=== PATIENT | female | born 1980 | race Caucasian/White ===

== ENCOUNTER 2016-08-10 14:35 | Observation (INO) | payer MEDICARE, MEDICAID ==
[~2016-08-10] VITALS: Ht 165.1 cm; Wt 63.5 kg
[2016-08-10 15:22] LABS: Basophils # (auto) 0 uL; Basophils % (auto) 0.2 % (0.0-2.0); Eosinophils # (auto) 0.1 uL; Eosinophils % (auto) 0.7 % (0.0-7.0); Hematocrit 39.7 % (36.0-46.0); Hemoglobin 13.6 g/dL (12.2-16.2); Lymphocytes # (auto) 2.3 uL; Lymphocytes % (auto) 19.8 % (10.0-50.0); Mean Corpuscular Hemoglobin 31.8 pg (28.0-32.0); Mean Corpuscular Hgb Conc. 34.3 g/dL (32.0-36.0); Mean Corpuscular Volume 92.8 fL (80.0-100.0); Mean Platelet Volume 8.5 fL (7.4-10.4); Monocytes # (auto) 0.9 uL; Monocytes % (auto) 7.4 % (0.0-12.0); Neutrophils # (auto) 8.3 uL; Neutrophils % (auto) 71.9 % (37.0-80.0); Platelet Count (auto) 288 10^3/uL (140-450); Red Cell Distribution Width 12.3 % (11.6-16.0); White Blood Cell 11.6 10^3/uL (4.4-10.8)
[2016-08-10 15:51] LABS: Albumin 4.3 g/dL (3.4-5.0); Bilirubin, Total 0.3 mg/dL (0.2-1.0); Calcium 9.1 mg/dL (8.5-10.1); Potassium 3.6 mmol/L (3.5-5.1); Total Protein 7.6 g/dL (6.4-8.2)
[2016-08-10 15:51] LABS: Urine Bilirubin Negative (Negative); Urine Blood Negative /uL (Negative); Urine Color Yellow (Yellow); Urine Glucose Normal (Normal); Urine Ketone Negative (Negative); Urine Nitrite Negative (Negative); Urine RBC <1 /hpf (0 - 4); Urine Squamous Epithelial Cell FEW /hpf (<5); Urine Urobilinogen Normal (Negative)
[2016-08-10] MEDS ORDERED: SODIUM CHLORIDE 0.9% 1,000 ML IVB ONE (17:33)
[2016-08-10] MEDS ORDERED: PROMETHAZINE HCL 25 MG/ML 1ML IV PRN (17:45)
[2016-08-10 21:36] VITALS: BP 104/70
== END 2016-08-10 20:27 | disposition home or self-care (01) | DRG 392 ==
LOC: ER 14:44 → OVERFLOW 17:34 → ER 20:27
PROVIDERS: ADMIT Family Medicine; ATTEND Family Medicine
DX: K52.9 Noninfective gastroenteritis and colitis, unspecified (principal); F17.210 Nicotine dependence, cigarettes, uncomplicated; Z82.49 Family history of ischemic heart disease and other diseases of the circulatory system
CPT/HCPCS: 36415; 74176; 80053; 81001; 81025; 83735; 85025; 96361; 96374; 99285; G0378; J2550

== ENCOUNTER 2017-02-07 07:28 | Emergency (ER) | payer MEDICAID, MEDICARE ==
[~2017-02-07] VITALS: Ht 165.1 cm; Wt 67.6 kg
[2017-02-07 07:36] VITALS: BP 103/61
[2017-02-07 08:02] LABS: Basophils # (auto) 0 uL; Basophils % (auto) 0.3 % (0.0-2.0); Eosinophils # (auto) 0.1 uL; Eosinophils % (auto) 1.4 % (0.0-7.0); Hematocrit 40.4 % (36.0-46.0); Hemoglobin 13.7 g/dL (12.2-16.2); Lymphocytes # (auto) 1.6 uL; Lymphocytes % (auto) 18.2 % (10.0-50.0); Mean Corpuscular Hemoglobin 31.5 pg (28.0-32.0); Mean Corpuscular Volume 92.5 fL (80.0-100.0); Monocytes # (auto) 0.6 uL; Monocytes % (auto) 7.3 % (0.0-12.0); Neutrophils # (auto) 6.2 uL; Neutrophils % (auto) 72.8 % (37.0-80.0); Nucleated Red Blood Cells % 0.1 %; Platelet Count (auto) 248 10^3/uL (140-450); Red Cell Distribution Width 11.9 % (11.8-14.3); White Blood Cell 8.5 10^3/uL (4.4-10.8)
[2017-02-07 08:19] LABS: Albumin 3.7 g/dL (3.4-5.0); BUN/Creatinine Ratio 12.3; Bilirubin, Total 0.5 mg/dL (0.2-1.0); Calcium 9.1 mg/dL (8.5-10.1); Potassium 4.4 mmol/L (3.5-5.1); Total Protein 7.7 g/dL (6.4-8.2)
[2017-02-07] MEDS ORDERED: ONDANSETRON ODT 4 MG TAB PO ONE (11:15)
== END 2017-02-07 11:24 | disposition home or self-care (01) ==
LOC: ER 07:28
DX: O02.0 Blighted ovum and nonhydatidiform mole (principal); O99.331 Smoking (tobacco) complicating pregnancy, first trimester
CPT/HCPCS: 36415; 76801; 76817; 80053; 81002; 84702; 85025; 99285; Q0162

== ENCOUNTER 2017-02-11 06:55 | Emergency (ER) | payer BC, MEDICARE ==
[~2017-02-11] VITALS: Ht 165.1 cm; Wt 68.0 kg
[2017-02-11 09:11] VITALS: BP 108/57
== END 2017-02-11 10:18 | disposition home or self-care (01) ==
LOC: ER 06:55
DX: O02.0 Blighted ovum and nonhydatidiform mole (principal); Z3A.00 Weeks of gestation of pregnancy not specified

== ENCOUNTER 2017-03-02 14:50 | Observation (INO) | payer BC, MEDICARE ==
[~2017-03-02] VITALS: Ht 162.6 cm; Wt 68.0 kg
[2017-03-02 15:39] LABS: Basophils # (auto) 0 uL; Basophils % (auto) 0.2 % (0.0-2.0); Eosinophils # (auto) 0.3 uL; Hematocrit 35.3 % (36.0-46.0); Hemoglobin 12.2 g/dL (12.2-16.2); Lymphocytes # (auto) 1.6 uL; Lymphocytes % (auto) 12.9 % (10.0-50.0); Mean Corpuscular Hemoglobin 31.3 pg (28.0-32.0); Mean Corpuscular Hgb Conc. 34.6 g/dL (32.0-36.0); Mean Corpuscular Volume 90.2 fL (80.0-100.0); Mean Platelet Volume 8.9 fL (6.9-10.8); Monocytes # (auto) 0.7 uL; Monocytes % (auto) 5.5 % (0.0-12.0); Neutrophils # (auto) 9.9 uL; Neutrophils % (auto) 79.4 % (37.0-80.0); Nucleated Red Blood Cells % 0.1 %; Platelet Count (auto) 260 10^3/uL (140-450); Red Cell Distribution Width 11.3 % (11.8-14.3); White Blood Cell 12.5 10^3/uL (4.4-10.8)
[2017-03-02 15:59] LABS: Albumin 3.2 g/dL (3.4-5.0); BUN/Creatinine Ratio 13.5; Bilirubin, Total 0.2 mg/dL (0.2-1.0); Calcium 8.9 mg/dL (8.5-10.1); Potassium 3.7 mmol/L (3.5-5.1); Total Protein 7.3 g/dL (6.4-8.2)
[2017-03-02] MEDS ORDERED: SODIUM CHLORIDE 0.9% 1,000 ML IVB ONE (18:11)
[2017-03-02 20:33] VITALS: BP 106/60
== END 2017-03-02 21:53 | disposition short-term general hospital (02) | DRG 782 ==
LOC: ER 15:01 → OVERFLOW 18:11 → ER 21:53
PROVIDERS: ADMIT Family Medicine; ATTEND Family Medicine
DX: O46.90 Antepartum hemorrhage, unspecified, unspecified trimester (principal); O01.9 Hydatidiform mole, unspecified; O03.9 Complete or unspecified spontaneous abortion without complication; O99.330 Smoking (tobacco) complicating pregnancy, unspecified trimester; Z3A.00 Weeks of gestation of pregnancy not specified; Z82.49 Family history of ischemic heart disease and other diseases of the circulatory system
CPT/HCPCS: 36415; 76801; 80053; 84702; 85025; 96360; 99285; G0378; J7030